=== PATIENT | male | born 1945 | race Two or more races ===

== ENCOUNTER 2016-10-12 14:05 | Outpatient (CLI) | payer MEDICARE, BC | END 2016-10-12 23:59 | disposition home or self-care (01) | LOC: CARD 14:05 | PROVIDERS: ATTEND Internal Medicine Cardiovascular Disease | DX: I63.9 Cerebral infarction, unspecified (principal) | CPT/HCPCS: 93880-TC ==

== ENCOUNTER 2017-10-30 13:55 | Outpatient (CLI) | payer MEDICARE, BC | END 2017-10-30 23:59 | disposition home or self-care (01) | LOC: WOU 13:55 | PROVIDERS: ATTEND Podiatrist Foot & Ankle Surgery | DX: M76.72 Peroneal tendinitis, left leg (principal); R60.0 Localized edema; M25.372 Other instability, left ankle; S96.812D Strain of other specified muscles and tendons at ankle and foot level, left foot, subsequent encounter; X58.XXXD Exposure to other specified factors, subsequent encounter; Z79.82 Long term (current) use of aspirin; Z79.899 Other long term (current) drug therapy | CPT/HCPCS: G0463; Z7610 ==

== ENCOUNTER 2022-03-24 17:43 | Inpatient (IN) | payer MEDICARE, BC ==
[~2022-03-24] VITALS: Ht 182.9 cm; Wt 82.1 kg
--- NOTE | 2022-03-24 17:49 | NUR ---
[id number] FRM C/O SOB x 5DAYS, WORSE TODAY. ON ALBUTEROL BREATHING TX UPON ARRIVAL O2 SAT AT 85% ON 12LPM. PLACED IN BED, AAOX4, DYSPNEIC RR- 28, SATURATING AT 75% WITH AEROSOL MASK AT 10LIT O2.
--- NOTE | 2022-03-24 17:50 | NUR ---
RN, RT, EMT AT BED SIDE PT IS AWAKE AND ALERT PLACED ON BIPAP
--- NOTE | 2022-03-24 17:52 | NUR ---
PATIENT ATTCHED TO BIPAP WITH SETTING IPAP- 15, EPAP- 5, RATE- 100%, RATE- 16 SATURATING AT 98%.
--- NOTE | 2022-03-24 17:54 | NUR ---
ESTABLISHED IV 18G RIGHT AC. BLOOD DRAWN AND SENT TO LAB.
[2022-03-24] MEDS ORDERED: FUROSEMIDE 40 MG/4 ML VIAL ONE (18:00)
[2022-03-24] MEDS ORDERED: FUROSEMIDE 40 MG/4 ML VIAL IV ONE (18:00)
[2022-03-24] MEDS ORDERED: methylPREDNISolone SOD SUCC 125 MG/2ML VIAL IV ONE (18:00)
[2022-03-24] MEDS ORDERED: ALBUTEROL FS 2.5 MG/3 ML VIAL.NEB NEB ONE (18:00)
[2022-03-24] MEDS ORDERED: IPRATROPIUM NEB FS 0.5 MG/2.5 ML AMPUL.NEB NEB ONE (18:00)
--- NOTE | 2022-03-24 18:00 | NUR ---
RAPID FLU AND COVID SWABS OBTAINED AND SENT TO LAB
--- NOTE | 2022-03-24 18:00 | NUR ---
MOVE SHEET SUBMITTED.
[2022-03-24] MEDS ORDERED: methylPREDNISolone SOD SUCC 125 MG/2ML VIAL ONE (18:01)
[2022-03-24] MEDS ORDERED: Magnesium 1GM/D5W 100ML PREMIX 100 ML IV ONE ×2 (18:01→18:18)
[2022-03-24] MEDS: Magnesium 1GM/D5W 100ML PREMIX 100 ML IV SCH ×2 (18:10→19:10)
--- NOTE | 2022-03-24 18:10 | NUR ---
FRIEND CALLED CARL[facility] HERNANDEZ LEFT CONTANCT # [phone]
[2022-03-24] MEDS ORDERED: ALBUTEROL FS 2.5 MG/3 ML VIAL.NEB ONE (18:16)
[2022-03-24] MEDS ORDERED: IPRATROPIUM NEB FS 0.5 MG/2.5 ML AMPUL.NEB ONE (18:16)
[2022-03-24 18:23] LABS: HEMATOCRIT 40 % (39-51); HEMOGLOBIN 12.9 g/dL (13.5-17.5); LYMPHOCYTES # (AUTO) 1.2 K/uL (0.8-4.8); LYMPHOCYTES % (AUTO) 6.4 % (20.0-44.0); MEAN CORPUSCULAR HGB CONC 32 g/dl (31.0-36.0); MEAN CORPUSCULAR VOLUME 88 fL (80-96); MONOCYTES # (AUTO) 1.5 K/uL (0.1-1.30); MONOCYTES % (AUTO) 8.3 % (2.0-12.0); NEUTROPHILS # (AUTO) 15.8 K/uL (1.8-8.9); NEUTROPHILS % (AUTO) 85.3 % (43.0-81.0); PLATELET COUNT (AUTO) 142 K/uL (150-450); RED BLOOD CELL COUNT(AUTO) 4.54 MIL/uL (4.5-6.0); WHITE BLOOD COUNT (AUTO) 18.6 K/uL (4.3-11.0)
[2022-03-24 18:56] LABS: ALANINE AMINOTRANSFERASE 25 U/L (12-78); ALBUMIN 3.6 g/dL (3.4-5.0); ALKALINE PHOSPHATASE 84 U/L (46-116); ASPARTATE AMINOTRANSFERASE 62 U/L (15-37); BILIRUBIN,DIRECT 0.7 mg/dL (0.0-0.2); BILIRUBIN,TOTAL 4.3 mg/dL (0.2-1.0); CALCIUM, SERUM 9.1 mg/dL (8.5-10.1); CARBON DIOXIDE 17 mmol/L (21-32); CHLORIDE 100 mmol/L (98-107); CREATININE 2.4 mg/dL (0.6-1.3); GLUCOSE 210 mg/dL (74-106); SODIUM SERUM 133 mmol/L (136-145); TOTAL PROTEIN, SERUM 7.7 g/dL (6.4-8.2); UREA NITROGEN, BLOOD 58 mg/dL (7-18)
[2022-03-24] MEDS ORDERED: AZITHROMYCIN 250 MG TABLET PO ONE (19:00)
[2022-03-24] MEDS ORDERED: CEFTRIAXONE 1GM BAG (ER ONLY) 1 GM/50 ML PIGGYBACK IV ONE (19:00)
[2022-03-24] MEDS ORDERED: ASPIRIN EC 325 MG TABLET.DR PO ONE ×2 (19:00→19:03)
[2022-03-24] MEDS ORDERED: CEFTRIAXONE 1GM BAG (ER ONLY) 50 ML IV ONE (19:02)
[2022-03-24] MEDS ORDERED: AZITHROMYCIN 250 MG TABLET ONE (19:03)
--- NOTE | 2022-03-24 19:58 | NUR ---
RT AT BEDSIDE FOR VBG
[2022-03-24 20:11] LABS: ABG BASE EXCESS -4.5 mmol/L; ABG PCO2 36.9 mmHg (35.0-45.0); ABG PH 7.359 (7.350-7.450); ABG PO2 34.6 mmHg (75.0-100.0); COHb 0.3 % (0.5-1.5); MetHb 0.3 % (0.0-1.5); O2Hb 61.7 % (94.0-97.0); SITE, ABG Other
--- NOTE | 2022-03-24 20:34 | NUR ---
TROPONIN 815
--- NOTE | 2022-03-24 20:48 | NUR ---
[facility]
--- NOTE | 2022-03-24 22:06 | NUR ---
REPORT GIVEN TO PRINCESS FRANKS ROOM 258 FOR LETY
[2022-03-24] MEDS ORDERED: ALBUTEROL FS 2.5 MG/3 ML VIAL.NEB NEB PRN (22:30)
[2022-03-24] MEDS ORDERED: ACETAMINOPHEN 325 MG TABLET PO PRN (22:30)
[2022-03-24] MEDS ORDERED: ZOLPIDEM TARTRATE 5 MG TABLET PO PRN (22:30)
[2022-03-24] MEDS ORDERED: ONDANSETRON HCL/PF 4 MG/2 ML VIAL IVP PRN (22:30)
[2022-03-24] MEDS ORDERED: MAG HYDROX/AL HYDROX/SIMETH 30 ML UDC PO PRN (22:30)
[2022-03-24] MEDS ORDERED: MAGNESIUM HYDROXIDE 30 ML UDC PO PRN (22:30)
[2022-03-24] MEDS ORDERED: Z GUARD REMEDY 4 OZ OINT TP PRN (22:30)
[2022-03-24] MEDS ORDERED: IPRATROPIUM NEB FS 0.5 MG/2.5 ML AMPUL.NEB NEB PRN (22:30)
[2022-03-24] MEDS ORDERED: AMLO-213 PO (22:42)
[2022-03-24] MEDS ORDERED: ROSU20TA2 PO (22:42)
[2022-03-24] MEDS ORDERED: LOSA100T31 PO (22:42)
[2022-03-24] MEDS ORDERED: ASPI-1169 PO (22:42)
--- NOTE | 2022-03-24 22:46 | NUR ---
PT TRANSFERRING TO ICU 258 VIA ACLS PROTOCOL WITH. VSS. ALL BELONGINGS WITH PT
[2022-03-24 23:15] VITALS: BP 138/62
--- NOTE | 2022-03-24 23:19 | NUR ---
RN NOTE PT REQUESTS FOR SLEEPING PILL. PT ADMINISTERED ZOLPIDEM 5 MG. BP 151/68, HR 85. WILL MONITOR FOR EFFECTIVENESS.
[2022-03-24 23:30] VITALS: BP 136/56
--- NOTE | 2022-03-24 23:37 | NUR ---
RN INITIAL NOTE PT ARRIVED TO UNIT VIA GURNEY. PT ADMITTED FOR RESP FAILURE AND SEPSIS SECONDARY TO PNEUMONIA. MEDICAL HX SIGNIFICANT FOR CHF; PT REPORTS OF HAVING AORTIC VALVE REPLACEMENT IN 2004; NO OTHER PERTINENT HX. DENIES USING ALCOHOL/SMOKE. RECEIVED MODERNA VACCINE X2 IN 2020; ALSO REPORTS OF RECEIVING PNA AND FLU VACCINE, UNABLE TO REMEMBER WHEN. PT IS A&O X4, CALM, COOPERATIVE. ON BIPAP WITH SETTINGS OF 15/5, RATE 16, FIO2 50% WITH CURRENT O2SAT OF 96%; REPORTS OF SOB WITH NO OTHER S/S OF RESP DISTRESS, NO COUGH, NON-LABORED AND EQUAL BREATHING. PT ATTACHED TO BEDSIDE MONITOR, SR WITH HR OF 85. IV ACCESS ON RAC 18G AND LEFT HAND 20G, INTACT AND PATENT, FLUSHES EASILY WITH NO RESISTANCE; NO MEDS/FLUIDS INFUSING THROUGH. SKIN ASSESSMENT PERFORMED WITH NO SKIN ABNORMALITIES NOTED. ALL BELONGINGS CHECKED AND ACCOUNTED FOR. BED IN LOWEST POSITION, CALL LIGHT WITHIN REACH, SIDE RAILS UP X2. WILL INITIATE PLAN OF CARE.
[2022-03-25] VITALS (26 sets, daily range): BP systolic 97–163; BP diastolic 43–96
[2022-03-25] MEDS ORDERED: methylPREDNISolone SOD SUCC 40 MG/ML VIAL IV SCH (05:00)
[2022-03-25 05:07] LABS: CARBON DIOXIDE 21 mmol/L (21-32); CHLORIDE 101 mmol/L (98-107); CREATININE 2.4 mg/dL (0.6-1.3); GLUCOSE 208 mg/dL (74-106); MAGNESIUM 3.1 mg/dL (1.8-2.4); POTASSIUM 4.2 mmol/L (3.5-5.1); SODIUM SERUM 134 mmol/L (136-145); UREA NITROGEN, BLOOD 61 mg/dL (7-18)
[2022-03-25 05:10] LABS: IRON, SERUM 27 ug/dl (50-175); TOTAL IRON BINDING CAPACITY 246 ug/dl (250-450)
[2022-03-25 05:16] LABS: HEMATOCRIT 36 % (39-51); HEMOGLOBIN 11.9 g/dL (13.5-17.5); LYMPHOCYTES # (AUTO) 0.8 K/uL (0.8-4.8); LYMPHOCYTES % (AUTO) 5.4 % (20.0-44.0); MEAN CORPUSCULAR HGB CONC 33 g/dl (31.0-36.0); MEAN CORPUSCULAR VOLUME 87 fL (80-96); MONOCYTES # (AUTO) 0.6 K/uL (0.1-1.30); MONOCYTES % (AUTO) 3.9 % (2.0-12.0); NEUTROPHILS # (AUTO) 14.1 K/uL (1.8-8.9); NEUTROPHILS % (AUTO) 90.7 % (43.0-81.0); PLATELET COUNT (AUTO) 112 K/uL (150-450); RED BLOOD CELL COUNT(AUTO) 4.17 MIL/uL (4.5-6.0); WHITE BLOOD COUNT (AUTO) 15.6 K/uL (4.3-11.0)
[2022-03-25 05:32] LABS: CHOLESTEROL 112 mg/dL (<200); HDL CHOLESTEROL 50 mg/dL (40-60); LDL 51 mg/dL (0-99); THYROID STIMULATING HORMONE 2.074 uIU/mL (0.358-3.74); TRIGLYCERIDES 84 mg/dL (30-150)
[2022-03-25 05:40] LABS: ABG BASE EXCESS -1.8 mmol/L; ABG OXYGEN SATURATION 94.1 % (92.0-98.5); ABG PCO2 26.4 mmHg (35.0-45.0); ABG PH 7.498 (7.350-7.450); ABG PO2 69.4 mmHg (75.0-100.0); AaDO2 257.4 mmHg; COHb 0.5 % (0.5-1.5); MetHb 0.3 % (0.0-1.5); O2Hb 93.3 % (94.0-97.0); SITE, ABG Right Radial
--- NOTE | 2022-03-25 06:00 | NUR ---
RN NOTE CRITICAL, TROPONIN IS 905, NOTED TO BE TRENDING UP FROM 825. MARKUS ORTIZ INFORMED, AWAITING RESPONSE. Addendum: 03/25/22 at 0601 by PRINCESS LINCOLN FRANKS MAGALY
--- NOTE | 2022-03-25 06:35 | NUR ---
IT APPLICATION DEVELOPMENT MANAGER CLOSING NOTE PT REMAINS IN BED, ASLEEP BUT EASILY AROUSABLE; SLEPT WELL THROUGHOUT THE NIGHT; A&O X4, CALM, COOPERATIVE. CONTINUES TO BE ON BIPAP WITH SAME SETTINGS; TOLERATED BIPAP WELL WITH O2SAT RANGING FROM 91%-97%; CONTINUES TO HAVE SOB AND TACHYPNEA WITH NON-PRODUCTIVE COUGH. ATTACHED TO BEDSIDE MONITOR, SR WITH HR RANGING FROM 63-90. IV ACCESS ON RAC 18G AND LEFT HAND 20G, INTACT AND PATENT, FLUSHES EASILY WITH NO RESISTANCE; NO MEDS/FLUIDS INFUSING THROUGH. ALL DUE MEDS ADMINISTERED. BED IN LOWEST POSITION, CALL LIGHT WITHIN REACH, SIDE RAILS UP X2. WILL ENDORSE TO DAYSHIFT NURSE TO CONTINUE CARE.
--- NOTE | 2022-03-25 07:15 | NUR ---
RN OPENING NOTE PATIENT REMAINS IN BED, DOSING INTERMITTENTLY BUT EASILY AWAKENED. A&O X4, CALM, COOPERATIVE. NOW ON SIMPLE MASK AT 10 LITERS PER MINUTE, OXYGEN SATURATION IN THE 90S. ATTACHED TO BEDSIDE MONITOR, SINUS RHYTHM WITH HEART RATE AT 72 BEATS PER MINUTE AT THIS TIME. IV ACCESS ON RAC 18G AND LEFT HAND 20G, INTACT AND PATENT, FLUSHES EASILY WITH NO RESISTANCE. BED IN LOWEST POSITION, CALL LIGHT WITHIN REACH, SIDE RAILS UP X2. WILL CONTINUE PLAN OF CARE AND ANTICIPATE NEEDS.
[2022-03-25] MEDS ORDERED: AZIT250T13 PO (07:45)
[2022-03-25] MEDS ORDERED: BENZ-38 PO (07:45)
[2022-03-25] MEDS: ASPIRIN 81 MG TAB.CHEW PO SCH (08:11)
[2022-03-25] MEDS: CEFEPIME 2 GM in IV D5W 100 ML IV SCH (08:16)
[2022-03-25] MEDS: IV NS 0.9% 250 ML IV PRN (08:33)
[2022-03-25] MEDS ORDERED: FUROSEMIDE 40 MG/4 ML VIAL IV SCH (09:00)
[2022-03-25] MEDS ORDERED: HEPARIN SODIUM, PORCINE 5000 UNITS/1 ML VIAL SQ SCH (09:00)
[2022-03-25] MEDS ORDERED: CEFEPIME 1 GM in IV D5W 50 ML IV SCH (09:00)
[2022-03-25] MEDS ORDERED: PANTOPRAZOLE 40 MG VIAL IV SCH (09:00)
[2022-03-25] MEDS ORDERED: HEPARIN INFUSION/D5W 500 ML IV PRN (10:00)
[2022-03-25] MEDS ORDERED: BUMETANIDE INJ 8 MG in IV NS 0.9% 48 ML IV ONE (11:00)
[2022-03-25] MEDS ORDERED: HEPARIN SODIUM, PORCINE 5000 UNITS/1 ML VIAL IV ONE (13:00)
--- NOTE | 2022-03-25 19:10 | NUR ---
HAND OFF REPORT GIVEN TO CHARGE NURSE ED FOR CONTINUATION OF CARE
--- NOTE | 2022-03-25 20:23 | NUR ---
RT NOTE PT RECEIVED ON 3 LPM NASAL CANNULA. NO RESPIRATORY DISTRESS NOTED. BIPAP STANDBY. WILL CONTINUE TO MONITOR.
[2022-03-25] MEDS: ZOLPIDEM TARTRATE 5 MG TABLET PO PRN (21:38)
[2022-03-26] VITALS (24 sets, daily range): BP systolic 99–129; BP diastolic 44–64
[2022-03-26 04:45] LABS: HEMATOCRIT 36 % (39-51); LYMPHOCYTES # (AUTO) 0.7 K/uL (0.8-4.8); LYMPHOCYTES % (AUTO) 3.6 % (20.0-44.0); MEAN CORPUSCULAR HGB CONC 33 g/dl (31.0-36.0); MEAN CORPUSCULAR VOLUME 86 fL (80-96); MONOCYTES % (AUTO) 5.1 % (2.0-12.0); NEUTROPHILS # (AUTO) 17.8 K/uL (1.8-8.9); NEUTROPHILS % (AUTO) 91.3 % (43.0-81.0); PLATELET COUNT (AUTO) 137 K/uL (150-450); RED BLOOD CELL COUNT(AUTO) 4.21 MIL/uL (4.5-6.0); WHITE BLOOD COUNT (AUTO) 19.5 K/uL (4.3-11.0)
[2022-03-26 05:05] LABS: ALANINE AMINOTRANSFERASE 30 U/L (12-78); ALKALINE PHOSPHATASE 74 U/L (46-116); ASPARTATE AMINOTRANSFERASE 46 U/L (15-37); CALCIUM, SERUM 8.6 mg/dL (8.5-10.1); CARBON DIOXIDE 23 mmol/L (21-32); CHLORIDE 100 mmol/L (98-107); CREATININE 2.4 mg/dL (0.6-1.3); GLUCOSE 159 mg/dL (74-106); MAGNESIUM 2.9 mg/dL (1.8-2.4); PHOSPHORUS 6.6 mg/dL (2.5-4.9); POTASSIUM 3.7 mmol/L (3.5-5.1); SODIUM SERUM 136 mmol/L (136-145); TOTAL PROTEIN, SERUM 6.7 g/dL (6.4-8.2); UREA NITROGEN, BLOOD 74 mg/dL (7-18)
--- NOTE | 2022-03-26 06:15 | NUR ---
FINISHER OPERATOR PATIENT IS AWAKE, ALERT, AND ORIENTED VSS STABLE AFEBRILE SCOPE-SR PATIENT TOLERATES OXYGEN 3L NC PTT RESULTS CAME AT 0530- 76.8 HEPARIN DRIP TITRATED DOWN BY 100UNITS/HR AND IS RUNNING 1100UNITS/HR NEXT PTT AT 1130AM AM TROPONIN RESULTS 685 URINE OUTPUT IS ADEQUATE. PATIENT REFUSED TO HAVE AM BATH. SLEPT WELL AFTER TAKING AMBIEN 5MG PO WILL CONTINUE CLOSE MONITORING
[2022-03-26] MEDS: ASPIRIN 81 MG TAB.CHEW PO SCH (08:10)
[2022-03-26] MEDS: CEFEPIME 2 GM in IV D5W 100 ML IV SCH (08:10)
[2022-03-26] MEDS: PANTOPRAZOLE 40 MG TABLET.DR PO SCH (08:50)
[2022-03-26] MEDS: FUROSEMIDE 100 MG/10 ML VIAL IV SCH ×3 (08:50→16:14)
[2022-03-26] MEDS: METOLAZONE 2.5 MG TABLET PO SCH (08:51)
[2022-03-26] MEDS: HEPARIN SODIUM, PORCINE 5000 UNITS/1 ML VIAL SQ SCH ×2 (08:51→20:34)
[2022-03-26] MEDS ORDERED: PANTOPRAZOLE 40 MG TABLET.DR PO SCH (09:00)
[2022-03-26 18:45] LABS: BILIRUBIN,URINE NEGATIVE (NEGATIVE); COLOR,URINE YELLOW (YELLOW); LEUKOCYTE ESTERASE ,URINE NEGATIVE (NEGATIVE); NITRITE, URINE NEGATIVE (NEGATIVE); PH,URINE 5.5 (5.0-8.0); PROTEIN,URINE NEGATIVE (NEGATIVE); UGLUCOSE NEGATIVE (NEGATIVE); UROBILINOGEN,URINE 0.2 EU/dL (0.2)
[2022-03-26 19:24] LABS: CREATININE, URINE 20.9 MG/DL (30.0-125.0)
--- NOTE | 2022-03-26 20:23 | NUR ---
SUPERVISOR INSPECTION ROOM OPENING NOTE PT RECEIVED IN BED, AWAKE, A&O X4, CALM, COOPERATIVE. PT ON 2L NC WITH CURRENT O2SAT OF 92%; NOTED TO BE TACHYPNEIC WITH RESPIRATIONS AT 30 AND NON-PRODUCTIVE COUGH; NO OTHER S/S OF RESP DISTRESS, NO SOB, NON-LABORED AND EQUAL BREATHING. PT ATTACHED TO BEDSIDE MONITOR, SR WITH HR OF 67. IV ACCESS ON RAC 18G AND LEFT HAND 20G, NS TKO INFUSING. BED IN LOWEST POSITION, CALL LIGHT WITHIN REACH, SIDE RAILS UP X2. WILL CONTINUE TO MONITOR THROUGHOUT THE NIGHT.
[2022-03-26] MEDS: ZOLPIDEM TARTRATE 5 MG TABLET PO PRN (20:35)
--- NOTE | 2022-03-26 20:35 | NUR ---
RN NOTE PT REQUESTS FOR SLEEPING PILL. PT ADMINISTERED ZOLPIDEM 5 MG. WILL MONITOR FOR EFFECTIVENESS.
[2022-03-27] VITALS (24 sets, daily range): BP systolic 90–122; BP diastolic 40–70
--- NOTE | 2022-03-27 04:07 | NUR ---
RN NOTE PT REFUSES BED BATH AND LINEN CHANGE.
[2022-03-27] MEDS: IV NS 0.9% 250 ML IV PRN (04:20)
[2022-03-27 04:38] LABS: BASOPHILS % (AUTO) 0.1 % (0.0-2.0); EOSINOPHILS % (AUTO) 0.1 % (0.0-6.0); HEMATOCRIT 38 % (39-51); HEMOGLOBIN 12.6 g/dL (13.5-17.5); LYMPHOCYTES # (AUTO) 1.4 K/uL (0.8-4.8); LYMPHOCYTES % (AUTO) 8.8 % (20.0-44.0); MEAN CORPUSCULAR HGB CONC 33 g/dl (31.0-36.0); MEAN CORPUSCULAR VOLUME 87 fL (80-96); MONOCYTES # (AUTO) 1.2 K/uL (0.1-1.30); MONOCYTES % (AUTO) 7.9 % (2.0-12.0); NEUTROPHILS % (AUTO) 83.1 % (43.0-81.0); PLATELET COUNT (AUTO) 151 K/uL (150-450); WHITE BLOOD COUNT (AUTO) 15.7 K/uL (4.3-11.0)
[2022-03-27 04:54] LABS: ALANINE AMINOTRANSFERASE 37 U/L (12-78); ALBUMIN 2.9 g/dL (3.4-5.0); ALKALINE PHOSPHATASE 73 U/L (46-116); ASPARTATE AMINOTRANSFERASE 38 U/L (15-37); BILIRUBIN,TOTAL 1.7 mg/dL (0.2-1.0); CALCIUM, SERUM 8.6 mg/dL (8.5-10.1); CARBON DIOXIDE 26 mmol/L (21-32); CHLORIDE 97 mmol/L (98-107); CREATININE 2.9 mg/dL (0.6-1.3); GLUCOSE 126 mg/dL (74-106); MAGNESIUM 2.8 mg/dL (1.8-2.4); PHOSPHORUS 7.1 mg/dL (2.5-4.9); POTASSIUM 3.4 mmol/L (3.5-5.1); SODIUM SERUM 137 mmol/L (136-145); TOTAL PROTEIN, SERUM 6.5 g/dL (6.4-8.2)
[2022-03-27 05:00] LABS: UREA NITROGEN, BLOOD 93 mg/dL (7-18)
--- NOTE | 2022-03-27 05:05 | NUR ---
RN NOTE RECEIVED CRITICAL FROM LAB. BUN 93, NOTED TO BE TRENDING UP FROM 74. MAGALY ORTIZ NOTIFIED; AWAITING RESPONSE.
--- NOTE | 2022-03-27 05:06 | NUR ---
RN NOTE RECEIVED ANOTHER CRITICAL FROM LAB. TROPONIN 669, NOTED TO BE TRENDING DOWN FROM 685.
--- NOTE | 2022-03-27 06:30 | NUR ---
RN NOTE PT REMAINS IN BED, ASLEEP BUT EASILY AROUSABLE, A&O X4, CALM, COOPERATIVE. CONTINUES TO BE ON 2L NC WITH O2SAT RANGING FROM 90%-96%; NO S/S OF RESP DISTRESS, NO SOB, NON-LABORED AND EQUAL BREATHING. ATTACHED TO BEDSIDE MONITOR, SB-SR WITH HR RANGING FROM 56-68. RAC 18G AND LEFT HAND 20G INTACT AND PATENT, NS TKO INFUSING. ALL DUE MEDS ADMINISTERED DURING THE NIGHT. BED IN LOWEST POSITION, CALL LIGHT WITHIN REACH, SIDE RAILS UP X2. WILL ENDORSE TO DAYSHIFT NURSE TO CONTINUE CARE.
[2022-03-27] MEDS: PANTOPRAZOLE 40 MG TABLET.DR PO SCH (08:19)
[2022-03-27] MEDS: METOLAZONE 2.5 MG TABLET PO SCH (08:19)
[2022-03-27] MEDS: ASPIRIN 81 MG TAB.CHEW PO SCH (08:19)
[2022-03-27] MEDS: HEPARIN SODIUM, PORCINE 5000 UNITS/1 ML VIAL SQ SCH ×2 (08:20→20:51)
[2022-03-27] MEDS: CEFEPIME 2 GM in IV D5W 100 ML IV SCH (08:53)
--- NOTE | 2022-03-27 20:09 | NUR ---
RN NOTE SPOKE WITH [facility] CALI. INFORMED THAT PT IS FINANCIALLY CLEARED, JUST PENDING ON GETTING BED. Addendum: 03/27/22 at 2100 by PRINCESS LINCOLN FRANKS CALI REPORTS TRANSFER AGREEMENT FORM NEEDS TO BE SIGNED BY WATERMELON INSPECTOR MELI. CALI EMAILED FORM TO MELI. WILL FOLLOW UP IN MORNING FOR MELI TO SIGN.
--- NOTE | 2022-03-27 20:39 | NUR ---
ELECTRICAL SUPERVISOR OPENING NOTE PT RECEIVED IN BED, AWAKE, A&O X4, CALM, COOPERATIVE. PT ON 2L NC WITH CURRENT O2SAT OF 96% WITH NON-PRODUCTIVE COUGH; NO OTHER S/S OF RESP DISTRESS, NO SOB, NON-LABORED AND EQUAL BREATHING. PT ATTACHED TO BEDSIDE MONITOR, SR WITH HR OF 61. IV ACCESS ON RAC 18G AND LEFT HAND 20G, INTACT AND PATENT, WITH NS TKO INFUSING. BED IN LOWEST POSITION, CALL LIGHT WITHIN REACH, SIDE RAILS UP X2. WILL CONTINUE TO MONITOR THROUGHOUT THE NIGHT.
[2022-03-27] MEDS: ZOLPIDEM TARTRATE 5 MG TABLET PO PRN (20:57)
--- NOTE | 2022-03-27 21:00 | NUR ---
RN NOTE PT REQUESTS FOR SLEEPING PILL. PT ADMINISTERED ZOLPIDEM 5 MG. BP 106/45, HR 66.
--- NOTE | 2022-03-27 22:34 | NUR ---
RN NOTE CALLED [facility]SF[facility] WITH ATTEMPT TO HAVE HOUSE NURSING DATA CENTER MANAGER SIGN TBA INSTEAD OF ARMOR RECONNAISSANCE SPECIALIST; HOWEVER NO ANSWER.
--- NOTE | 2022-03-27 22:42 | NUR ---
RN NOTE RECEIVED CALL FROM [facility]. UPDATED SEBLE THAT PT HAD BEEN ACCEPTED AT [facility] AND JUST WAITING FOR BED. SEBLE GIVEN MOST RECENT VITALS AND STATUS UPDATE OF PT. [facility] TO FOLLOW UP WITH MELI BATH MIX OPERATOR IN AM. Addendum: 03/27/22 at 2254 by PRINCESS LINCOLN FRANKS ALSO PENDING BED AT [facility] PER [facility]
[2022-03-28] VITALS (28 sets, daily range): BP systolic 102–132; BP diastolic 39–83
[2022-03-28 03:41] LABS: BASOPHILS % (AUTO) 0.1 % (0.0-2.0); EOSINOPHILS % (AUTO) 1.4 % (0.0-6.0); HEMATOCRIT 35 % (39-51); HEMOGLOBIN 11.6 g/dL (13.5-17.5); LYMPHOCYTES # (AUTO) 1.5 K/uL (0.8-4.8); LYMPHOCYTES % (AUTO) 13.2 % (20.0-44.0); MEAN CORPUSCULAR HGB CONC 34 g/dl (31.0-36.0); MEAN CORPUSCULAR VOLUME 86 fL (80-96); MONOCYTES % (AUTO) 9.1 % (2.0-12.0); NEUTROPHILS # (AUTO) 8.4 K/uL (1.8-8.9); NEUTROPHILS % (AUTO) 76.2 % (43.0-81.0); PLATELET COUNT (AUTO) 147 K/uL (150-450); RED BLOOD CELL COUNT(AUTO) 4.02 MIL/uL (4.5-6.0); WHITE BLOOD COUNT (AUTO) 11.1 K/uL (4.3-11.0)
[2022-03-28 03:50] LABS: CALCIUM, SERUM 8.2 mg/dL (8.5-10.1); CARBON DIOXIDE 27 mmol/L (21-32); CHLORIDE 98 mmol/L (98-107); CREATININE 2.8 mg/dL (0.6-1.3); GLUCOSE 125 mg/dL (74-106); MAGNESIUM 2.7 mg/dL (1.8-2.4); PHOSPHORUS 6.4 mg/dL (2.5-4.9); POTASSIUM 3.1 mmol/L (3.5-5.1); SODIUM SERUM 135 mmol/L (136-145)
[2022-03-28 03:52] LABS: UREA NITROGEN, BLOOD 97 mg/dL (7-18)
--- NOTE | 2022-03-28 06:49 | NUR ---
HARM REDUCTION WORKER CLOSING NOTE PT REMAINS IN BED, ASLEEP BUT EASILY AROUSABLE; SLEPT WELL THROUGHOUT THE NIGHT; A&O X4, CALM, COOPERATIVE. CONTINUES TO BE ON 2L NC WITH O2SAT RANGING FROM 90%-99%; CONTINUES TO HAVE NON-PRODUCTIVE COUGH; NO OTHER S/S OF RESP DISTRESS. ATTACHED TO BEDSIDE MONITOR, SB-SR WITH HR RANGING FROM 55-85. RAC 18G AND LEFT HAND 20G INTACT AND PATENT, FLUSHES EASILY WITH NO RESISTANCE; NS TKO INFUSING. PT GIVEN BED BATH, LINENS CHANGED. ALL DUE MEDS ADMINISTERED DURING THE NIGHT. WILL ENDORSE TO DAYSHIFT NURSE TO CONTINUE CARE.
--- NOTE | 2022-03-28 07:05 | NUR ---
LAMP DECORATOR OPENING NOTE: RECEIVED PT. IN BED, AWAKE, AOX4. NO COMPLAINTS OF PAIN/DISCOMFORT AT THIS TIME. NO S/S OF RESPIRATORY DISTRESS AT THIS TIME. JEWELRY BENCH WORKER READS NSR/SINUS JASON AT THIS TIME. SKIN INTACT. USES URINAL AT BEDSIDE WITH CLEAR YELLOW URINE OUTPUT NOTED. IV ACCESS ON R AC #18G, WITH NS RUNNING TKO, ALSO HAS L HAND #20G, BUT SITE IS LEAKING, IV REMOVED AND PRESSURE DRESING APPLIED, NO BLEEDING NOTED. IV SITE DRESSING C/D/I WITH NO S/S OF INFILTRATION. SAFETY MEASURES IN PLACE: BED IN LOWEST AND LOCKED POSITION, HOB ELEVATED AT 30 DEGREES, BED ALARM ON, CALL LIGHT WITHIN REACH, SIDE RAILS UP X2. WILL ENCOURAGE FREQUENT REPOSITIONING IN BED. WILL CONTINUE TO MONITOR PT. FOR ANY CHANGES.
[2022-03-28] MEDS: CEFEPIME 2 GM in IV D5W 100 ML IV SCH (08:11)
[2022-03-28] MEDS: HEPARIN SODIUM, PORCINE 5000 UNITS/1 ML VIAL SQ SCH ×2 (08:13→20:38)
[2022-03-28] MEDS: ASPIRIN 81 MG TAB.CHEW PO SCH (08:13)
[2022-03-28] MEDS: PANTOPRAZOLE 40 MG TABLET.DR PO SCH (08:13)
[2022-03-28] MEDS: METOLAZONE 2.5 MG TABLET PO SCH (08:13)
[2022-03-28] MEDS ORDERED: POTASSIUM CHLORIDE 20 MEQ TAB.PRT.SR PO ONE (09:30)
--- NOTE | 2022-03-28 10:00 | NUR ---
POWDER GUARD NOTE: PT. 'S POTASSIUM AT 3.[address] DENNEY ORDERED 40 MEQ POTASSIUM CHLORIDE PO. ORDER FOLLOWED. PT. OFF O2 VIA NASAL CANNULA WELL. CURRENTLY SATURATING AT 94-95% ON ROOM AIR. WILL CONTINUE TO MONITOR PT. FOR ANY CHANGES.
--- NOTE | 2022-03-28 19:10 | NUR ---
COMMUNITY RELATIONS DIRECTOR CLOSING NOTE: PT. REMAINS IN BED, AWAKE, AOX4. NO COMPLAINTS OF PAIN/DISCOMFORT AT THIS TIME. ON RA, NO S/S OF RESPIRATORY DISTRESS AT THIS TIME. WIRE HANGER READS NSR/SINUS JASON THIS SHIFT. SKIN INTACT. USES URINAL AT BEDSIDE WITH TOTAL OF 550 ML CLEAR YELLOW URINE THIS SHIFT. HAD 1 SOFT BM THIS SHIFT, NO S/S OF BLEEDING. IV ACCESS ON R AC #18G, PATENT AND SALINE LOCKED. IV SITE DRESSING C/D/I WITH NO S/S OF INFILTRATION. SAFETY MEASURES MAINTAINED: BED IN LOWEST AND LOCKED POSITION, HOB ELEVATED AT 30 DEGREES, BED ALARM ON, CALL LIGHT WITHIN REACH, SIDE RAILS UP X2. ENCOURAGED FREQUENT REPOSITIONING IN BED. ENDORSED CONTINUITY OF CARE TO MULTI SENSOR OPERATOR RN RAFY.
--- NOTE | 2022-03-28 19:57 | NUR ---
RODEO CLOWN. INITIAL ASSESSMENT. RECEIVED THE PT REST IN BED. AWAKE, ALERT, FOLLOW COMMANDS. REIMBURSEMENT SPEC SHOWING S JASON. PT IS ROOM AIR. SAT 98%.NO ACUTE DISTRESS NOTED. REIMBURSEMENT SPEC SHOWING S JASON. IV RT AC 18G. SALINE LOCK. HOB ELEVATED. WILL CONTINUE TO MONITOR VITALS.
[2022-03-28] MEDS: ZOLPIDEM TARTRATE 5 MG TABLET PO PRN (20:36)
[2022-03-29] VITALS (26 sets, daily range): BP systolic 97–138; BP diastolic 42–94
[2022-03-29 04:13] LABS: CALCIUM, SERUM 8.4 mg/dL (8.5-10.1); CHLORIDE 100 mmol/L (98-107); CREATININE 2.5 mg/dL (0.6-1.3); GLUCOSE 126 mg/dL (74-106); MAGNESIUM 3.1 mg/dL (1.8-2.4); PHOSPHORUS 4.8 mg/dL (2.5-4.9); POTASSIUM 3.2 mmol/L (3.5-5.1); SODIUM SERUM 135 mmol/L (136-145)
[2022-03-29 04:18] LABS: EOSINOPHILS % (AUTO) 0.4 % (0.0-6.0); HEMATOCRIT 35 % (39-51); HEMOGLOBIN 11.4 g/dL (13.5-17.5); LYMPHOCYTES # (AUTO) 1.3 K/uL (0.8-4.8); LYMPHOCYTES % (AUTO) 10.7 % (20.0-44.0); MEAN CORPUSCULAR HGB CONC 33 g/dl (31.0-36.0); MEAN CORPUSCULAR VOLUME 87 fL (80-96); MONOCYTES % (AUTO) 8.6 % (2.0-12.0); NEUTROPHILS # (AUTO) 9.5 K/uL (1.8-8.9); NEUTROPHILS % (AUTO) 80.3 % (43.0-81.0); PLATELET COUNT (AUTO) 158 K/uL (150-450); RED BLOOD CELL COUNT(AUTO) 4.01 MIL/uL (4.5-6.0); WHITE BLOOD COUNT (AUTO) 11.9 K/uL (4.3-11.0)
[2022-03-29 05:15] LABS: UREA NITROGEN, BLOOD 92 mg/dL (7-18)
[2022-03-29 05:42] LABS: BASOPHILS % (MANUAL) 0 % (0.0-2.0); EOSINOPHILS % (MANUAL) 0 % (0-4); LYMPHOCYTES % (MANUAL) 13 % (16-48); MONOCYTES % (MANUAL) 6 % (0-11.0); NEUTROPHILS % (MANUAL) 81 (42-76)
--- NOTE | 2022-03-29 05:47 | NUR ---
vocational horticulture instructor. am care given. remaining same oxygen tolerated well. sat 98%. no acute distress noted. personnel monitor showing nsr. iv rt hand 18g. saline lock. hob elevated. will continue to monitor vitals.
[2022-03-29 06:09] LABS: CARBON DIOXIDE 26 mmol/L (21-32)
[2022-03-29] MEDS: PANTOPRAZOLE 40 MG TABLET.DR PO SCH (08:42)
[2022-03-29] MEDS: METOLAZONE 2.5 MG TABLET PO SCH (08:42)
[2022-03-29] MEDS: HEPARIN SODIUM, PORCINE 5000 UNITS/1 ML VIAL SQ SCH (08:44)
[2022-03-29] MEDS ORDERED: ATORVASTATIN 40 MG TABLET PO SCH (09:00)
[2022-03-29] MEDS ORDERED: AMLODIPINE BESYLATE 10 MG TABLET PO SCH (09:00)
[2022-03-29] MEDS ORDERED: ASPIRIN 81 MG TAB.CHEW PO SCH (09:00)
[2022-03-29] MEDS: CEFEPIME 2 GM in IV D5W 100 ML IV SCH (09:11)
[2022-03-29] MEDS ORDERED: POTASSIUM CHLORIDE 20 MEQ TAB.PRT.SR PO ONE (12:00)
--- NOTE | 2022-03-29 20:01 | NUR ---
pt left from unit at 1999.pt is going to [facility].
== END 2022-03-29 19:58 | disposition short-term general hospital (02) | DRG 871 ==
LOC: ER 17:48 → ICU 21:25
PROVIDERS: ADMIT Nurse Practitioner Acute Care; ATTEND Student in an Organized Health Care Education/Training Program
PROC: 5A09357 Assistance with Respiratory Ventilation, Less than 24 Consecutive Hours, Continuous Positive Airway Pressure (ICD-10-PCS; principal; 2022-03-24)
DX: A41.9 Sepsis, unspecified organism (principal); I21.A1 Myocardial infarction type 2; I50.33 Acute on chronic diastolic (congestive) heart failure; J18.9 Pneumonia, unspecified organism; J96.01 Acute respiratory failure with hypoxia; N17.0 Acute kidney failure with tubular necrosis; E87.1 Hypo-osmolality and hyponatremia; E87.20 Acidosis, unspecified; Z20.822 Contact with and (suspected) exposure to COVID-19; Z79.82 Long term (current) use of aspirin; R74.01 Elevation of levels of liver transaminase levels; Z79.899 Other long term (current) drug therapy; I08.0 Rheumatic disorders of both mitral and aortic valves; Z95.2 Presence of prosthetic heart valve; N18.9 Chronic kidney disease, unspecified; I25.2 Old myocardial infarction; I27.20 Pulmonary hypertension, unspecified; E87.6 Hypokalemia
CPT/HCPCS: 36415; 36600; 71045-TC; 76770-TC; 80048-TC; 80053-TC; 80061-TC; 80076-TC; 82570-TC; 82803-TC; 83540-TC; 83605-TC; 83735-TC; 83880; 84100-TC; 84300-TC; 84443-TC; 84484-TC; 85025-TC; 85730-TC; 87040-TC; 87081-TC; 93307-TC; 94799-TC; 97116-TC; 97530-TC; C9113; C9803; G0378; J0692; J0696; J1644; J1940; J2920; J2930; J3475; J3490; J7040; J7050; J7060